=== PATIENT | female | born 1960 | race Two or more races ===

== ENCOUNTER 2018-09-07 06:20 | Day surgery (SDC) | payer MEDICARE, MEDICAID ==
[~2018-09-07] VITALS: Ht 165.1 cm; Wt 67.6 kg
[2018-09-07 06:50] VITALS: BP 155/77
[2018-09-07] MEDS ORDERED: LIDOcaine 1% 30ml preserv. free vial SQ PRN (07:05)
[2018-09-07] MEDS ORDERED: albumin 25% 100mL bottle x 1 IV ONE (07:05)
[2018-09-07] MEDS ORDERED: SYN0.088T PO (07:08)
[2018-09-07] MEDS ORDERED: LACT10SO67 PO (07:08)
[2018-09-07] MEDS ORDERED: INSU100I31 SUBCUT (07:08)
[2018-09-07] MEDS ORDERED: AMLO2.5T2 PO (07:08)
[2018-09-07] MEDS ORDERED: ATOR80TA PO (07:08)
[2018-09-07] MEDS ORDERED: FURO-150 PO (07:08)
[2018-09-07] MEDS ORDERED: FOLI0.8T22 PO (07:08)
[2018-09-07] MEDS ORDERED: METO-384 PO (07:08)
[2018-09-07] MEDS ORDERED: HYDR-4069 PO (07:08)
[2018-09-07] MEDS ORDERED: ZAR2.5T PO (07:08)
[2018-09-07] MEDS ORDERED: CLON-529 PO (07:08)
[2018-09-07] MEDS ORDERED: LIDOcaine 1%/PF 5ML 10 MG/ML VIAL ONE (07:24)
[2018-09-07 08:50] VITALS: BP 161/79
[2018-09-07 09:00] VITALS: BP 176/83
[2018-09-07 09:15] VITALS: BP 176/86
[2018-09-07 09:30] VITALS: BP 177/80
== END 2018-09-07 09:46 | disposition home or self-care (01) ==
LOC: SSTAY O 06:20
PROVIDERS: ATTEND Radiology Diagnostic Radiology
DX: T82.898A Other specified complication of vascular prosthetic devices, implants and grafts, initial encounter (principal); R18.8 Other ascites; N18.6 End stage renal disease; E11.22 Type 2 diabetes mellitus with diabetic chronic kidney disease; I12.0 Hypertensive chronic kidney disease with stage 5 chronic kidney disease or end stage renal disease; E78.5 Hyperlipidemia, unspecified; Y83.8 Other surgical procedures as the cause of abnormal reaction of the patient, or of later complication, without mention of misadventure at the time of the procedure; Z79.899 Other long term (current) drug therapy
CPT/HCPCS: 36589; 49083; C1729; J2001; J3490

== ENCOUNTER 2018-10-11 10:56 | Day surgery (SDC) | payer MEDICARE, MEDICAID ==
[~2018-10-11] VITALS: Ht 165.1 cm; Wt 59.6 kg
[~2018-10-11 10:56] MED LIST: AMLO2.5T2 PO; ATOR80TA PO; CLON-529 PO; FOLI0.8T22 PO; FURO-150 PO; HYDR-4069 PO; INSU100I31 SUBCUT; LACT10SO67 PO; METO-384 PO; SYN0.088T PO; ZAR2.5T PO
[2018-10-11 11:20] VITALS: BP 169/73
[2018-10-11] MEDS ORDERED: normal saline 1000ml 1,000 ML IV PRN (11:20)
[2018-10-11 11:56] LABS: BASOPHILS # (AUTO) 0.1 X10'3 (0-0.2); BASOPHILS % (AUTO) 1.5 % (0-1); EOSINOPHILS # (AUTO) 0.4 X10'3 (0-0.9); EOSINOPHILS % (AUTO) 5.2 % (0-6); HEMATOCRIT 35.4 % (35.0-45.0); HEMOGLOBIN 11.8 g/dl (12.0-16.0); LYMPHOCYTES # (AUTO) 0.6 X10'3 (1.1-4.8); LYMPHOCYTES % (AUTO) 7.9 % (21-51); MEAN CORPUSCULAR HEMOGLOBIN 31.1 PG (27.0-31.0); MEAN CORPUSCULAR HGB CONC 33.4 g/dL (33.0-36.5); MEAN CORPUSCULAR VOLUME 93.2 FL (78-98); MEAN PLATELET VOLUME 7.4 FL (7.4-10.4); MONOCYTES # (AUTO) 0.6 X10'3 (0-0.9); MONOCYTES % (AUTO) 7.5 % (2-12); NEUTROPHILS # (AUTO) 6.1 X10'3 (1.8-7.7); NEUTROPHILS % (AUTO) 77.9 % (42-75); PLATELET COUNT 444 X10'3 (140-440); RED CELL DISTRIBUTION WIDTH 16.7 % (11.5-14.5); WHITE BLOOD COUNT 7.8 X10'3 (4.5-11.0)
[2018-10-11 11:58] LABS: ALBUMIN 2.9 G/DL (3.4-5.0); ANION GAP 8 (8-16); BLOOD UREA NITROGEN 47 MG/DL (7-18); BUN/CREATININE RATIO 14.6 (6.6-38.0); CALCIUM 8.4 MG/DL (8.5-10.1); CHLORIDE 98 MMOL/L (99-107); CREATININE 3.22 MG/DL (0.40-0.90); GLUCOSE 177 MG/DL (70-104); POTASSIUM 4.1 MMOL/L (3.5-5.1); SODIUM 135 MMOL/L (135-145); eGFR 15 ML/MIN
[2018-10-11] MEDS ORDERED: KAY15L PO (12:00)
[2018-10-11] MEDS ORDERED: ESCI10TA54 PO (12:00)
[2018-10-11] MEDS ORDERED: normal saline 1000ml 1,000 ML IV SCH (13:24)
[2018-10-11] MEDS ORDERED: fentaNYL/PF 50MCG/1 ML 2ML syringe IV PRN (13:25)
[2018-10-11] MEDS ORDERED: midazolam 2 mg/2 ml injection IV PRN (13:25)
[2018-10-11] MEDS ORDERED: heparin 1,000 UNITS/NS 500ml 500 ML ICATH ONE (13:25)
[2018-10-11] MEDS ORDERED: midazolam 2 mg/2 ml injection ONE (13:28)
[2018-10-11] MEDS ORDERED: heparin 1,000 UNITS/NS 500ml 500 ML ONE (13:29)
[2018-10-11] MEDS ORDERED: fentaNYL/PF 50MCG/1 ML 2ML syringe ONE (13:29)
[2018-10-11] MEDS ORDERED: iohexol 300mg/ml 100ml inj. ONE ×2 (13:29)
[2018-10-11] MEDS ORDERED: LIDOcaine 1%/PF 5ML 10 MG/ML VIAL ONE (13:43)
[2018-10-11] MEDS ORDERED: tPA-cathflo 2 MG/2 ml IV flush ONE (13:53)
[2018-10-11] MEDS ORDERED: heparin 1,000unit/ml 10ml vial 10 ML ONE (14:01)
[2018-10-11 15:35] VITALS: BP 148/65
[2018-10-11 15:45] VITALS: BP 145/66
[2018-10-11 16:00] VITALS: BP 142/75
[2018-10-11 16:15] VITALS: BP 135/61
[2018-10-11 16:30] VITALS: BP 140/62
== END 2018-10-11 16:40 | disposition home or self-care (01) ==
LOC: SSTAY O 10:56
PROVIDERS: ATTEND Radiology Diagnostic Radiology
DX: T82.868A Thrombosis due to vascular prosthetic devices, implants and grafts, initial encounter (principal); Y83.8 Other surgical procedures as the cause of abnormal reaction of the patient, or of later complication, without mention of misadventure at the time of the procedure; Z79.899 Other long term (current) drug therapy
CPT/HCPCS: 36415; 36905; 80048; 82948; 85025; 99152; 99153; J1644; J2001; J2250; J2997; J3010; J7030; Q9967; C1725; C1757; C1769; C1894

== ENCOUNTER 2018-10-31 07:44 | Day surgery (SDC) | payer MEDICARE, MEDICAID ==
[2018-10-31] VITALS (7 sets, daily range): BP systolic 125–176; BP diastolic 55–94
[~2018-10-31] VITALS: Ht 165.1 cm; Wt 59.5 kg
[~2018-10-31 07:44] MED LIST changes: +ESCI10TA54 PO; +KAY15L PO
[2018-10-31] MEDS ORDERED: normal saline 1000ml 1,000 ML IV SCH ×3 (08:15→12:52)
[2018-10-31 08:37] LABS: BASOPHILS # (AUTO) 0.2 X10'3 (0-0.2); BASOPHILS % (AUTO) 2.7 % (0-1); EOSINOPHILS # (AUTO) 0.4 X10'3 (0-0.9); EOSINOPHILS % (AUTO) 7.3 % (0-6); HEMATOCRIT 36.6 % (35.0-45.0); HEMOGLOBIN 12.2 g/dl (12.0-16.0); LYMPHOCYTES # (AUTO) 0.6 X10'3 (1.1-4.8); LYMPHOCYTES % (AUTO) 9.7 % (21-51); MEAN CORPUSCULAR HEMOGLOBIN 30.8 PG (27.0-31.0); MEAN CORPUSCULAR HGB CONC 33.2 g/dL (33.0-36.5); MEAN CORPUSCULAR VOLUME 92.7 FL (78-98); MEAN PLATELET VOLUME 7.7 FL (7.4-10.4); MONOCYTES # (AUTO) 0.5 X10'3 (0-0.9); MONOCYTES % (AUTO) 8.8 % (2-12); NEUTROPHILS # (AUTO) 4.4 X10'3 (1.8-7.7); NEUTROPHILS % (AUTO) 71.5 % (42-75); PLATELET COUNT 413 X10'3 (140-440); RED BLOOD COUNT 3.95 X10'6 (4.20-5.60); RED CELL DISTRIBUTION WIDTH 16.3 % (11.5-14.5); WHITE BLOOD COUNT 6.1 X10'3 (4.5-11.0)
[2018-10-31 09:05] LABS: ALBUMIN 2.7 G/DL (3.4-5.0); ANION GAP 2 (8-16); BLOOD UREA NITROGEN 25 MG/DL (7-18); BUN/CREATININE RATIO 10.5 (6.6-38.0); CALCIUM 8.4 MG/DL (8.5-10.1); CHLORIDE 100 MMOL/L (99-107); CREATININE 2.38 MG/DL (0.40-0.90); GLUCOSE 169 MG/DL (70-104); POTASSIUM 4.4 MMOL/L (3.5-5.1); SODIUM 134 MMOL/L (135-145); TOTAL CARBON DIOXIDE 31.8 MMOL/L (24-32); eGFR 21 ML/MIN
[2018-10-31] MEDS ORDERED: midazolam 2 mg/2 ml injection IV PRN (09:25)
[2018-10-31] MEDS ORDERED: fentaNYL/PF 50MCG/1 ML 2ML syringe IV PRN (09:25)
[2018-10-31] MEDS ORDERED: LIDOcaine 1%/PF 5ML 10 MG/ML VIAL SQ ONE (09:25)
[2018-10-31] MEDS ORDERED: iohexol 300mg/ml 100ml inj. ONE (09:52)
[2018-10-31] MEDS ORDERED: LIDOcaine 1%/PF 5ML 10 MG/ML VIAL ONE (09:52)
[2018-10-31] MEDS ORDERED: fentaNYL/PF 50MCG/1 ML 2ML syringe ONE (10:00)
[2018-10-31] MEDS ORDERED: midazolam 2 mg/2 ml injection ONE (10:00)
[2018-10-31] MEDS ORDERED: heparin 1,000 UNITS/NS 500ml 500 ML ONE ×2 (10:00→11:29)
[2018-10-31] MEDS ORDERED: tPA-cathflo 2 MG/2 ml IV flush ONE (10:40)
[2018-10-31] MEDS ORDERED: heparin 1,000unit/ml 10ml vial 10 ML ONE (11:05)
== END 2018-10-31 15:00 | disposition home or self-care (01) ==
LOC: SSTAY O 07:44
PROVIDERS: ATTEND Radiology Vascular & Interventional Radiology
DX: T82.868A Thrombosis due to vascular prosthetic devices, implants and grafts, initial encounter (principal); Y83.8 Other surgical procedures as the cause of abnormal reaction of the patient, or of later complication, without mention of misadventure at the time of the procedure; E11.22 Type 2 diabetes mellitus with diabetic chronic kidney disease; N18.6 End stage renal disease; Z79.899 Other long term (current) drug therapy; Z79.4 Long term (current) use of insulin
CPT/HCPCS: 36415; 36905; 80048; 82948; 85025; 99152; 99153; C1725; C1757; C1769; C1887; C1894; J1644; J2001; J2250; J2997; J3010; J7030; Q9967

== ENCOUNTER 2018-12-25 05:59 | Day surgery (SDC) | payer MEDICARE, MEDICAID ==
[~2018-12-25] VITALS: Ht 165.1 cm; Wt 64.9 kg
[2018-12-25] MEDS ORDERED: normal saline 1000ml 1,000 ML IV SCH (06:35)
[2018-12-25 06:57] LABS: BASOPHILS # (AUTO) 0.1 X10'3 (0-0.2); BASOPHILS % (AUTO) 1.7 % (0-1); EOSINOPHILS # (AUTO) 0.7 X10'3 (0-0.9); EOSINOPHILS % (AUTO) 7.9 % (0-6); HEMATOCRIT 34.2 % (35.0-45.0); HEMOGLOBIN 10.9 g/dl (12.0-16.0); LYMPHOCYTES # (AUTO) 0.5 X10'3 (1.1-4.8); LYMPHOCYTES % (AUTO) 5.2 % (21-51); MEAN CORPUSCULAR HEMOGLOBIN 30.2 PG (27.0-31.0); MEAN CORPUSCULAR HGB CONC 31.9 g/dL (33.0-36.5); MEAN CORPUSCULAR VOLUME 94.7 FL (78-98); MEAN PLATELET VOLUME 7.8 FL (7.4-10.4); MONOCYTES # (AUTO) 0.8 X10'3 (0-0.9); MONOCYTES % (AUTO) 8.7 % (2-12); NEUTROPHILS # (AUTO) 6.7 X10'3 (1.8-7.7); NEUTROPHILS % (AUTO) 76.5 % (42-75); PLATELET COUNT 369 X10'3 (140-440); RED BLOOD COUNT 3.61 X10'6 (4.20-5.60); RED CELL DISTRIBUTION WIDTH 17.8 % (11.5-14.5); WHITE BLOOD COUNT 8.7 X10'3 (4.5-11.0)
[2018-12-25 07:02] LABS: ALBUMIN 2.8 G/DL (3.4-5.0); ANION GAP 11 (8-16); BLOOD UREA NITROGEN 55 MG/DL (7-18); BUN/CREATININE RATIO 12.6 (6.6-38.0); CALCIUM 8.5 MG/DL (8.5-10.1); CHLORIDE 102 MMOL/L (99-107); CREATININE 4.36 MG/DL (0.40-0.90); GLUCOSE 140 MG/DL (70-104); POTASSIUM 5.7 MMOL/L (3.5-5.1); SODIUM 136 MMOL/L (135-145); TOTAL CARBON DIOXIDE 23.3 MMOL/L (24-32); eGFR 10 ML/MIN
[2018-12-25 07:44] VITALS: BP 158/90
--- NOTE | 2018-12-25 08:23 | NUR ---
DR MCRAE AT BEDSIDE.
--- NOTE | 2018-12-25 08:36 | NUR ---
PROCEDURE CANCELLED AND RESCHEDULED BY DR. HTOR M.D.
[2018-12-25] MEDS ORDERED: heparin 1,000 UNITS/NS 500ml 500 ML ICATH ONE (08:45)
[2018-12-25] MEDS ORDERED: LIDOcaine 1%/PF 5ML 10 MG/ML VIAL SQ ONE (08:45)
[2018-12-25] MEDS ORDERED: midazolam 2 mg/2 ml injection IV PRN (08:45)
[2018-12-25] MEDS ORDERED: fentaNYL/PF 50MCG/1 ML 2ML syringe IV PRN (08:45)
== END 2018-12-25 08:40 | disposition home or self-care (01) ==
LOC: SSTAY O 05:59
PROVIDERS: ATTEND Radiology Diagnostic Radiology
DX: T82.868A Thrombosis due to vascular prosthetic devices, implants and grafts, initial encounter (principal); Z53.8 Procedure and treatment not carried out for other reasons; Y83.8 Other surgical procedures as the cause of abnormal reaction of the patient, or of later complication, without mention of misadventure at the time of the procedure; N18.6 End stage renal disease; I12.0 Hypertensive chronic kidney disease with stage 5 chronic kidney disease or end stage renal disease; E11.22 Type 2 diabetes mellitus with diabetic chronic kidney disease; E78.5 Hyperlipidemia, unspecified; Z79.4 Long term (current) use of insulin; Z79.899 Other long term (current) drug therapy
CPT/HCPCS: 36415; 80048; 82948; 85025; 85610

== ENCOUNTER 2019-01-31 08:16 | Day surgery (SDC) | payer MEDICARE, MEDICAID ==
[~2019-01-31] VITALS: Ht 165.1 cm; Wt 59.8 kg
[2019-01-31 08:43] VITALS: BP 148/67
[2019-01-31] MEDS ORDERED: INSU100I31 (08:58)
[2019-01-31] MEDS ORDERED: normal saline 1000ml 1,000 ML IV PRN (09:00)
[2019-01-31 09:03] LABS: HEMOGLOBIN 12.3 g/dl (12.0-16.0); RED CELL DISTRIBUTION WIDTH 18.2 % (11.5-14.5)
[2019-01-31 09:04] LABS: HEMATOCRIT 37.6 % (35.0-45.0); MEAN CORPUSCULAR HEMOGLOBIN 30.7 PG (27.0-31.0); MEAN CORPUSCULAR HGB CONC 32.7 g/dL (33.0-36.5); MEAN CORPUSCULAR VOLUME 93.8 FL (78-98); MEAN PLATELET VOLUME 7.2 FL (7.4-10.4); PLATELET COUNT 347 X10'3 (140-440); RED BLOOD COUNT 4.01 X10'6 (4.20-5.60); WHITE BLOOD COUNT 6.8 X10'3 (4.5-11.0)
[2019-01-31] MEDS ORDERED: LIDOcaine 1%/PF 5ML 10 MG/ML VIAL SQ ONE (09:10)
[2019-01-31] MEDS ORDERED: midazolam 2 mg/2 ml injection IV PRN (09:10)
[2019-01-31] MEDS ORDERED: fentaNYL/PF 50MCG/1 ML 2ML syringe IV PRN (09:10)
[2019-01-31 09:20] LABS: ALBUMIN 2.7 G/DL (3.4-5.0); ANION GAP 10 (8-16); BLOOD UREA NITROGEN 24 MG/DL (7-18); BUN/CREATININE RATIO 9.8 (6.6-38.0); CALCIUM 8.2 MG/DL (8.5-10.1); CHLORIDE 104 MMOL/L (99-107); CREATININE 2.44 MG/DL (0.40-0.90); GLUCOSE 119 MG/DL (70-104); POTASSIUM 3.9 MMOL/L (3.5-5.1); SODIUM 139 MMOL/L (135-145); TOTAL CARBON DIOXIDE 24.7 MMOL/L (24-32); eGFR 20 ML/MIN
[2019-01-31] MEDS ORDERED: LIDOcaine 1% (10mg/ml) 2ml vial SQ ONE (09:30)
[2019-01-31] MEDS ORDERED: LIDOcaine 1%/PF 5ML 10 MG/ML VIAL ONE (09:31)
[2019-01-31] MEDS ORDERED: iohexol 300mg/ml 100ml inj. ONE (09:32)
[2019-01-31] MEDS ORDERED: midazolam 2 mg/2 ml injection ONE (09:39)
[2019-01-31] MEDS ORDERED: fentaNYL/PF 50MCG/1 ML 2ML syringe ONE (09:39)
[2019-01-31] MEDS ORDERED: heparin 1,000 UNITS/NS 500ml 500 ML ONE (09:40)
[2019-01-31 09:47] LABS: TOTAL CELLS COUNTED 100
[2019-01-31 09:48] LABS: ANISOCYTOSIS 2+; PLATELET ESTIMATE NORMAL
[2019-01-31 09:49] LABS: LARGE PLATELETS FEW
[2019-01-31] MEDS ORDERED: ondansetron/PF 4mg/2ml inj ONE (09:49)
[2019-01-31 10:59] VITALS: BP 145/76
[2019-01-31] MEDS ORDERED: normal saline 1000ml 1,000 ML IV SCH (11:05)
[2019-01-31 11:15] VITALS: BP 155/77
[2019-01-31 11:30] VITALS: BP 150/69
[2019-01-31 11:45] VITALS: BP 146/63
[2019-01-31 12:00] VITALS: BP 144/65
== END 2019-01-31 12:20 | disposition home or self-care (01) ==
LOC: SSTAY O 08:16
PROVIDERS: ATTEND Radiology Diagnostic Radiology
DX: T82.858A Stenosis of other vascular prosthetic devices, implants and grafts, initial encounter (principal); E11.22 Type 2 diabetes mellitus with diabetic chronic kidney disease; N18.9 Chronic kidney disease, unspecified; Z79.899 Other long term (current) drug therapy; Y83.2 Surgical operation with anastomosis, bypass or graft as the cause of abnormal reaction of the patient, or of later complication, without mention of misadventure at the time of the procedure; Y92.89 Other specified places as the place of occurrence of the external cause
CPT/HCPCS: 36415; 36902; 80048; 85025; 85610; 99152; 99153; C1725; C1769; C1894; J1644; J2250; J2405; J3010; J7030; Q9967

== ENCOUNTER 2019-05-28 07:54 | Day surgery (SDC) | payer MEDICARE, MEDICAID ==
[~2019-05-28] VITALS: Ht 165.1 cm; Wt 64.8 kg
[2019-05-28] VITALS (8 sets, daily range): BP systolic 117–192; BP diastolic 67–99
[~2019-05-28 07:54] MED LIST changes: +INSU100I31; -KAY15L PO
[2019-05-28] MEDS ORDERED: normal saline 1000ml 1,000 ML IV PRN (08:20)
[2019-05-28] MEDS ORDERED: LIDOcaine 1% (10mg/ml) 2ml vial SQ ONE (09:20)
[2019-05-28] MEDS ORDERED: midazolam 2 mg/2 ml injection IV PRN (09:20)
[2019-05-28] MEDS ORDERED: fentaNYL/PF 50MCG/1 ML 2ML syringe IV PRN (09:20)
[2019-05-28 09:46] LABS: BASOPHILS # (AUTO) 0.1 X10'3 (0-0.2); BASOPHILS % (AUTO) 1.7 % (0-1); EOSINOPHILS # (AUTO) 0.4 X10'3 (0-0.9); EOSINOPHILS % (AUTO) 6.8 % (0-6); HEMATOCRIT 38.8 % (35.0-45.0); HEMOGLOBIN 13.4 g/dl (12.0-16.0); LYMPHOCYTES # (AUTO) 0.6 X10'3 (1.1-4.8); LYMPHOCYTES % (AUTO) 8.9 % (21-51); MEAN CORPUSCULAR HEMOGLOBIN 32.4 PG (27.0-31.0); MEAN CORPUSCULAR HGB CONC 34.4 g/dL (33.0-36.5); MONOCYTES # (AUTO) 0.4 X10'3 (0-0.9); MONOCYTES % (AUTO) 6.2 % (2-12); NEUTROPHILS # (AUTO) 4.9 X10'3 (1.8-7.7); NEUTROPHILS % (AUTO) 76.4 % (42-75); PLATELET COUNT 392 X10'3 (140-440); RED BLOOD COUNT 4.12 X10'6 (4.20-5.60); RED CELL DISTRIBUTION WIDTH 16.4 % (11.5-14.5); WHITE BLOOD COUNT 6.4 X10'3 (4.5-11.0)
[2019-05-28 09:58] LABS: ALBUMIN 3.2 G/DL (3.4-5.0); ANION GAP 12 (8-16); BLOOD UREA NITROGEN 70 MG/DL (7-18); BUN/CREATININE RATIO 15.1 (6.6-38.0); CALCIUM 8.3 MG/DL (8.5-10.1); CHLORIDE 101 MMOL/L (99-107); CREATININE 4.64 MG/DL (0.40-0.90); GLUCOSE 146 MG/DL (70-104); POTASSIUM 5.5 MMOL/L (3.5-5.1); SODIUM 136 MMOL/L (135-145); TOTAL CARBON DIOXIDE 23.3 MMOL/L (24-32); eGFR 10 ML/MIN
[2019-05-28] MEDS ORDERED: normal saline 1000ml 1,000 ML IV SCH (10:06)
[2019-05-28] MEDS ORDERED: HYDR50TA3 PO (10:17)
[2019-05-28] MEDS ORDERED: ISOS30TA6 PO (10:17)
[2019-05-28] MEDS ORDERED: AMLO10TA PO (10:17)
[2019-05-28] MEDS ORDERED: HYDR100T27 PO (10:17)
[2019-05-28] MEDS ORDERED: CALC667T6 PO (10:17)
[2019-05-28] MEDS ORDERED: LEVO75TA7 PO (10:17)
[2019-05-28] MEDS ORDERED: METO5TAB7 PO (10:17)
[2019-05-28] MEDS ORDERED: FURO80TA3 PO (10:17)
[2019-05-28] MEDS ORDERED: heparin 1,000unit/ml 10ml vial 10 ML ONE (10:19)
[2019-05-28] MEDS ORDERED: fentaNYL/PF 50MCG/1 ML 2ML syringe ONE ×2 (10:20→10:54)
[2019-05-28] MEDS ORDERED: iohexol 300mg/ml 100ml inj. ONE (10:20)
[2019-05-28] MEDS ORDERED: heparin 1,000 UNITS/NS 500ml 500 ML ONE (10:20)
[2019-05-28] MEDS ORDERED: LIDOcaine 1%/PF 5ML 10 MG/ML VIAL ONE (10:20)
[2019-05-28] MEDS ORDERED: midazolam 2 mg/2 ml injection ONE ×2 (10:20→10:54)
[2019-05-28] MEDS ORDERED: hydrALAZINE 20mg/ml inj. IV ONE ×2 (10:45→10:50)
[2019-05-28] MEDS ORDERED: tPA-cathflo 2 MG/2 ml IV flush ONE (10:46)
[2019-05-28] MEDS ORDERED: tPA-cathflo 2 MG/2 ml IV flush ICATH ONE (10:50)
[2019-05-28] MEDS ORDERED: ondansetron/PF 4mg/2ml inj ONE (11:54)
[2019-05-28] MEDS ORDERED: ondansetron/PF 4mg/2ml inj IM ONE (13:15)
[2019-05-28] MEDS ORDERED: ondansetron/PF 4mg/2ml inj IV ONE (13:25)
== END 2019-05-28 14:20 | disposition home or self-care (01) ==
LOC: SSTAY O 07:54
PROVIDERS: ATTEND Radiology Diagnostic Radiology
DX: T82.868A Thrombosis due to vascular prosthetic devices, implants and grafts, initial encounter (principal); Y83.2 Surgical operation with anastomosis, bypass or graft as the cause of abnormal reaction of the patient, or of later complication, without mention of misadventure at the time of the procedure; Y92.89 Other specified places as the place of occurrence of the external cause; E11.22 Type 2 diabetes mellitus with diabetic chronic kidney disease; I12.0 Hypertensive chronic kidney disease with stage 5 chronic kidney disease or end stage renal disease; N18.6 End stage renal disease; E78.5 Hyperlipidemia, unspecified; Z79.4 Long term (current) use of insulin; Z98.890 Other specified postprocedural states; Z79.899 Other long term (current) drug therapy
CPT/HCPCS: 36415; 36905; 80048; 82948; 85025; 99152; 99153; C1725; C1769; C1894; J0360; J1644; J2250; J2405; J2997; J3010; J7030; Q9967

== ENCOUNTER 2020-03-18 12:59 | Emergency (ER) | payer MEDICARE, MEDICAID ==
[~2020-03-18] VITALS: Ht 165.1 cm; Wt 61.4 kg
[~2020-03-18 12:59] MED LIST changes: +AMLO10TA PO; -AMLO2.5T2 PO; +CALC667T6 PO; -CLON-529 PO; -ESCI10TA54 PO; -FURO-150 PO; +FURO80TA3 PO; -HYDR-4069 PO; +HYDR100T27 PO; +HYDR50TA3 PO; -INSU100I31 SUBCUT; +ISOS30TA6 PO; -LACT10SO67 PO; +LEVO75TA7 PO; -METO-384 PO; +METO5TAB7 PO; -SYN0.088T PO; -ZAR2.5T PO
[2020-03-18 13:25] VITALS: BP 142/67
== END 2020-03-18 14:03 | disposition home or self-care (01) ==
LOC: ER 13:03
DX: R05 Cough (principal); R53.83 Other fatigue; Z20.828 Contact with and (suspected) exposure to other viral communicable diseases; E11.9 Type 2 diabetes mellitus without complications; Z98.890 Other specified postprocedural states; Z79.4 Long term (current) use of insulin; Z79.899 Other long term (current) drug therapy
CPT/HCPCS: 36415; 87635; 99283